=== PATIENT | male | born 1995 | race African-American/Black ===

== ENCOUNTER 2021-05-18 00:13 | Emergency (ER) | payer BC ==
[~2021-05-18] VITALS: Ht 165.1 cm; Wt 77.0 kg
[2021-05-18] MEDS ORDERED: SODIUM CHLORIDE 0.9% 1,000 ML IV ONE (01:00)
[2021-05-18] MEDS ORDERED: LEVETIRACETAM 1000MG PREMIX 100 ML IV ONE (01:00)
[2021-05-18 01:02] LABS: BASOPHILS % 0.4 % (0.0-2.0); CHLORIDE 102 mEq/L (98-107); HEMOGLOBIN. 12.9 g/dL (14.0-18.0); LYMPHOCYTES % 9.2 % (20.0-50.0); MEAN CORPUSCULAR HEMOGLOBIN 29.3 pg (28.0-32.0); MEAN CORPUSCULAR VOLUME 86.5 fL (80.0-94.0); MEAN PLATELET VOLUME 8.8 fl (7.4-10.4); MONOCYTES % 10.5 % (2.0-8.0); NEUTROPHILS % 78.9 % (40.0-76.0); PLATELET 135 x1000/uL (130-400); RED CELL DISTRIBUTION WIDTH 17.1 % (11.6-14.6)
[2021-05-18 01:07] LABS: ETHANOL BLOOD < 10 mg/dL
[2021-05-18 02:00] VITALS: BP 163/119
[2021-05-18 02:32] LABS: CLARITY URINE CLEAR (CLEAR); COLOR URINE YELLOW (YELLOW); KETONES URINE TRACE (NEGATIVE); LEUKOCYTE ESTERASE URINE NEGATIVE (NEGATIVE); NITRITE URINE NEGATIVE (NEGATIVE); OCCULT BLOOD URINE NEGATIVE (NEGATIVE); PROTEIN URINE TRACE (NEGATIVE); SPECIFIC GRAVITY URINE 1.013 (1.005-1.030)
[2021-05-18 02:40] LABS: *AMPHETAMINES SCREEN URINE NEGATIVE (NEGATIVE); *BARBITURATES SCREEN URINE NEGATIVE (NEGATIVE); *BENZODIAZEPINES SCREEN URINE NEGATIVE (NEGATIVE); *COCAINE SCREEN URINE NEGATIVE (NEGATIVE); CANNABINOID URINE SCREEN PRESUMTIVE POSITIVE (NEGATIVE); METHADONE URINE SCREEN NEGATIVE (NEGATIVE); OPIATES URINE SCREEN NEGATIVE (NEGATIVE); PHENCYCLIDINE URINE SCREEN NEGATIVE (NEGATIVE)
[2021-05-18 02:48] LABS: PROTHROMBIN TIME 10.9 sec (9.6-11.0)
[2021-05-18] MEDS ORDERED: LACTULOSE 20G/30ML UDC PO ONE (03:30)
[2021-05-18] MEDS ORDERED: KEPP500 MT (04:06)
== END 2021-05-18 05:26 | disposition left against medical advice (07) ==
LOC: ER 01:06
DX: R56.9 Unspecified convulsions (principal); R74.01 Elevation of levels of liver transaminase levels; Z98.890 Other specified postprocedural states
CPT/HCPCS: 36415; 70450; 80053; 80305; 80320; 81003; 82140; 82962; 85025; 85610; 93005; 96365; 99285; J1953; J7030; G0480